=== PATIENT | male | born 1950 | race Native Hawaiian/Other Pacific Islander ===

== ENCOUNTER 2020-09-08 13:46 | Outpatient (CLI) | payer OTHER | END 2020-09-08 19:19 | disposition home or self-care (01) | LOC: MRI 13:46 | PROVIDERS: ATTEND Nurse Practitioner Family | DX: M25.562 Pain in left knee (principal) ==

== ENCOUNTER 2020-10-08 15:03 | Outpatient (CLI) | payer OTHER | END 2020-10-08 20:32 | disposition home or self-care (01) | LOC: RAD 15:03 | PROVIDERS: ATTEND Orthopaedic Surgery | DX: M25.562 Pain in left knee (principal) ==

== ENCOUNTER 2020-12-28 12:59 | Outpatient (CLI) | payer OTHER | END 2020-12-28 21:05 | disposition home or self-care (01) | LOC: RAD 12:59 | PROVIDERS: ATTEND Physician Assistant | DX: M25.562 Pain in left knee (principal) ==

== ENCOUNTER 2021-05-03 11:05 | Emergency (ER) | payer OTHER ==
[~2021-05-03] VITALS: Ht 182.9 cm; Wt 98.9 kg
[2021-05-03 11:50] LABS: PLATELET COUNT 245 K/uL (142-355)
[2021-05-03] MEDS ORDERED: BENA5CAP PO (14:17)
[2021-05-03] MEDS ORDERED: ASPIR-8181 MG PO (14:18)
[2021-05-03] MEDS ORDERED: LIPITOR40 MG PO (14:18)
[2021-05-03 18:30] VITALS: BP 151/81; TEMP 98
== END 2021-05-03 18:30 | disposition short-term general hospital (02) ==
LOC: ED 11:05
PROVIDERS: Emergency Medicine Emergency Medical Services
DX: R55 Syncope and collapse (principal); R77.8 Other specified abnormalities of plasma proteins; Z11.52 Encounter for screening for COVID-19
CPT/HCPCS: 80053; 84484; 85027; 87635; 93005; 96360; 96375; 96376; 99284; J1200; U0003

== ENCOUNTER 2021-08-16 15:49 | Outpatient (CLI) | payer OTHER ==
[~2021-08-16 15:49] MED LIST: ASPIR-8181 MG PO; BENA5CAP PO; LIPITOR40 MG PO
== END 2021-08-16 20:16 | disposition home or self-care (01) ==
LOC: RAD 15:49
PROVIDERS: ATTEND Nurse Practitioner Family
DX: J44.9 Chronic obstructive pulmonary disease, unspecified (principal)

== ENCOUNTER 2021-09-08 11:02 | Outpatient (CLI) | payer OTHER | END 2021-09-08 19:11 | disposition home or self-care (01) | LOC: NM 11:02 | PROVIDERS: ATTEND Nurse Practitioner Family | DX: R74.01 Elevation of levels of liver transaminase levels (principal) | CPT/HCPCS: A9537 ==

== ENCOUNTER 2021-09-14 07:56 | Outpatient (CLI) | payer OTHER | END 2021-09-14 19:39 | disposition home or self-care (01) | LOC: NM 07:56 | PROVIDERS: ATTEND Nurse Practitioner Family | DX: R89.0 Abnormal level of enzymes in specimens from other organs, systems and tissues (principal); R74.01 Elevation of levels of liver transaminase levels; Z79.899 Other long term (current) drug therapy | CPT/HCPCS: A9500 ==

== ENCOUNTER 2021-11-03 08:31 | Outpatient (CLI) | payer OTHER | END 2021-11-03 19:08 | disposition home or self-care (01) | LOC: RAD 08:31 | PROVIDERS: ATTEND Internal Medicine Gastroenterology | DX: K21.9 Gastro-esophageal reflux disease without esophagitis (principal); R11.0 Nausea; K59.09 Other constipation ==

== ENCOUNTER 2022-01-04 14:51 | Outpatient (CLI) | payer OTHER | END 2022-01-04 19:10 | disposition home or self-care (01) | LOC: RAD 14:51 | PROVIDERS: ATTEND Orthopaedic Surgery | DX: M25.562 Pain in left knee (principal) ==

== ENCOUNTER 2022-08-29 15:34 | Outpatient (CLI) | payer OTHER ==
[2022-08-29 16:03] LABS: POTASSIUM 4.2 mmol/L (3.6-5.2)
[2022-08-29 16:11] LABS: PLATELET COUNT 268 K/uL (142-355)
== END 2022-08-29 19:01 | disposition home or self-care (01) ==
LOC: RAD 15:34
PROVIDERS: ATTEND Nurse Practitioner Family
DX: R05.9 Cough, unspecified (principal); R06.02 Shortness of breath
CPT/HCPCS: 36415; 80053; 83880; 85027

== ENCOUNTER 2022-10-03 14:24 | Outpatient (CLI) | payer OTHER | END 2022-10-03 19:28 | disposition home or self-care (01) | LOC: US 14:24 | PROVIDERS: ATTEND Nurse Practitioner Family | DX: Z09 Encounter for follow-up examination after completed treatment for conditions other than malignant neoplasm (principal); Z86.73 Personal history of transient ischemic attack (TIA), and cerebral infarction without residual deficits ==

== ENCOUNTER 2022-10-10 13:28 | Outpatient (CLI) | payer OTHER | END 2022-10-10 19:03 | disposition home or self-care (01) | LOC: RESP 13:28 | PROVIDERS: ATTEND Nurse Practitioner Family | DX: R06.2 Wheezing (principal) ==